=== PATIENT | male | born 1975 | race Caucasian/White ===

== ENCOUNTER 2021-01-22 17:20 | Outpatient (CLI) | payer BC, SELFPAY | END 2021-01-22 17:21 | disposition home or self-care (01) | LOC: ANHCOVIDVC 17:20 | PROVIDERS: PCP Family Medicine | DX: Z23 Encounter for immunization (principal) | CPT/HCPCS: 0001A; 91300 ==

== ENCOUNTER 2021-02-12 17:18 | Outpatient (CLI) | payer BC, SELFPAY | END 2021-02-12 17:19 | disposition home or self-care (01) | LOC: ANHCOVIDVC 17:18 | PROVIDERS: PCP Family Medicine | DX: Z23 Encounter for immunization (principal) | CPT/HCPCS: 0002A; 91300 ==

== ENCOUNTER 2021-08-20 10:12 | Emergency (ER) | payer BC, SELFPAY ==
[2021-08-20] VITALS (26 sets, daily range): BP systolic 157–183; BP diastolic 94–105; PULSE 49–69; RESP 10–24; TEMP 36.5; O2SAT 98–100
--- NOTE | ~2021-08-20 | XR_ITS ---
XR chest 2V DATE: 08/20/2021 11:00 INDICATION: Shortness of breath, dizziness TECHNIQUE: PA and lateral views COMPARISON: None FINDINGS: Normal heart size. No hilar or mediastinal enlargement. No pulmonary infiltrate or consolid ation, pleural effusion or pulmonary vascular congestion or pneumothorax. Minimal thoracic scoliosis. IMPRESSION: No active cardiopulmonary disease Reviewed, dictated and finalized at location B.
--- NOTE | 2021-08-20 10:33 | ECG_ITS ---
Measurements Intervals Milo Rate: 48 P: 70 IN: 168 QRS: 61 QRSD: 114 T: 45 QT: 437 QTc: 394 Interpretive Statements SINUS BRADYCARDIA CONSIDER INFERIOR INFARCT, AGE INDETERMINATE BASELINE ARTIFACT- I, II, III, AVR, AVL, AVF, V1-V6 ABNORMAL ECG Electronically Signed On 08-20-2021 11:24:04 CDT by Brandon Greene D.O.
[2021-08-20 11:02] LABS: Basophils Percent Auto 0.8 % (0.2-1.2); Eosinophils Absolute Auto 0.1 K/mm3 (0-0.3); Eosinophils Percent Auto 2.8 % (0-4.4); Hemoglobin 13.7 g/dL (14.0-18.0); Immature Granulocyte Absolute 0.01 K/mm3 (0.00-0.031); Immature Granulocyte Percent A 0.3 % (0-0.5); Lymphocytes Absolute Auto 1.22 K/mm3 (0.9-3.2); Lymphocytes Percent Auto 30.9 % (18.3-44.2); Mean Corpuscular HGB Conc 33.4 g/dl (32-36); Mean Corpuscular Hemoglobin 31.5 pg (26-34); Mean Corpuscular Volume 94.3 fl (80-100); Mean Platelet Volume 12.4 fl (7.4-10.4); Monocytes Absolute Auto 0.3 K/mm3 (0.1-0.6); Monocytes Percent Auto 7.3 % (2.6-8.5); Neutrophils Absolute Auto 2.3 K/mm3 (1.3-6.7); Neutrophils Percent Auto 57.9 % (45.5-73.1); Platelet Count Result 160 k/mm3 (150-375); Red Blood Count 4.35 M/mm3 (4.6-6.20); Red Cell Distribution Width 11.3 % (11.5-14.5)
[2021-08-20 11:14] LABS: Anion Gap 5 mmol/L (8-16); Blood Urea Nitrogen 21 mg/dL (9-20); Calcium 9.8 mg/dL (8.4-10.2); Carbon Dioxide 31 mmol/L (22-30); Chloride 102 mmol/L (98-107); Estimated CRCL calculation 97 ml/min; Estimated Glomerular Filt Rate > 60; Glucose 108 mg/dL (65-110); Potassium 4.9 mmol/L (3.4-5.0); Sodium 138 mmol/L (137-145)
[2021-08-20 11:19] LABS: INR 0.9; Partial Thromboplastin Time 25.7 SECONDS (22.3-36.8); Prothrombin Time 12.2 Seconds (11.1-14.7)
[2021-08-20 11:22] LABS: D Dimer 0.33 ug/mL (<0.48)
[2021-08-20 11:26] LABS: Troponin I < 0.012 ng/mL (0.000-0.034)
--- NOTE | 2021-08-20 11:31 | ED.DIZZY ---
HPI - Dizziness General Chief Complaint: Dizziness Stated Complaint: dizzy Time Seen by Provider: 08/20/21 10:30 Source: patient and RN notes reviewed Mode of arrival: ambulatory Limitations: no limitations History of Present Illness HPI Narrative: This is a 46 year old male who presents for evaluation of dizziness. Patient reports he has had 3 episodes in which he gets lightheaded. His most recent episode occurred this morning while he was on a bike ride. He states he had been riding his bike for 40 minutes and he develop sharp frontal headache, lightheadedness and shortness of breath. He states he stopped to rest so his symptoms only lasted 2-3 minutes. He tried to right his bike again and he became lightheaded. He denies having heart racing or chest pain with his symptoms. He has not symptoms currently. He states he has had 2 other episode over the past week. One episode occurred with exertion and one episode occurred at rest. He denies headache , dizziness, chest pain or shortness of breath currently. Related Data Allergies Allergy/AdvReac Type Severity Reaction Status Date / Time No Known Drug Allergies Allergy Unknown Unknown Verified 08/16/21 07:55 Review of Systems Review of Systems: All systems reviewed & are unremarkable except as noted in HPI and below Constitutional: Constitutional: Denies chills and Denies fever(s) Eyes: Eyes: Denies change in vision Cardiovascular: Cardiovascular: Denies chest pain Respiratory: Respiratory: Denies cough, Reports dyspnea and Denies wheezing Gastrointestinal: Gastrointestinal: Denies abdominal pain, Denies diarrhea, Denies nausea and Denies vomiting Neurologic: Reports dizziness, Reports headache(s) and Denies focal weakness PMFSH Past Medical History Medical History Acute bronchitis due to infection Acute bronchitis due to other specified organisms Alopecia BMI 30.0-30.9,adult Body mass index [BMI] 29.0-29.9, adult (10/29/17) Body mass index [BMI] 31.0-31.9, adult (02/05/18) Bradycardia Dietary counseling and surveillance (09/20/18) Dyspnea on exertion Elevated blood pressure reading Hyperhidrosis Hyperlipidemia, unspecified Lightheadedness Other asthma Overweight Routine physical examination Screening for diabetes mellitus Screening for lipid disorders Screening for prostate cancer Screening for thyroid disorder Surgical History Surgical History History of appendectomy Family History Family History Father Hypertension Grandparent Family history of coronary artery disease Diabetes mellitus Mother History of hip replacement Sibling No problems noted. Social History Social History Alcohol intake: current Additional occupation/education comments: [employer] Gender identity (if verbalized by the patient): Male Exam Narrative: GENERAL: Well-appearing, well-nourished, and in no acute distress. HEAD: Normocephalic, atraumatic EYES: PERRLA and EOMI, conjunctiva clear without discharge EARS: TM's clear bilaterally without erythema or dullness NOSE: Nares clear, no rhinorrhea or epistaxis THROAT:Mucous membranes moist, Oropharynx normal without erythema, exudate, peritonsillar swelling or fluctuance NECK: Supple, without lymphadenopathy or mass RESPIRATORY: No respiratory distress, Airway patent, Respirations non-labored, Clear to auscultation without rales, rhonchi or wheeze HEART: Regular rate and rhythm. No murmur heard. Normal peripheral pulses. ABDOMEN: Soft, nontender, nondistended, normal active bowel sounds. No masses. No rebound or guarding, No organomegaly. EXTREMITIES: No edema, normal strength with full range of motion. SKIN: Warm, dry, normal color without rash NEURO: Alert and oriented x3. CN
[2021-08-20] MEDS: SODIUM CHLORIDE 0.9% IV 1,000 ML 999 ML IV CONT (11:54)
[2021-08-20 12:43] LABS: Magnesium 1.9 mg/dL (1.6-2.3)
[2021-08-20] MEDS: hydrALAZINE HCL 20 MG/ML VIAL 10 MG IV PUSH (13:39)
[2021-08-20 14:45] LABS: Troponin I < 0.012 ng/mL (0.000-0.034)
--- NOTE | 2021-08-20 15:22 | PC.NURSE ---
Patient refusing holter monitor. Patient states he would like to shower when he gets home and would be unable to shower with monitor. Patient aware of risks and benefits of wearing monitor. Patient given prescription to picker packer and wear holter monitor tomorrow. Patient given instructions on where to go tomorrow to picker packer monitor. OFELIA Fuentes aware.
== END 2021-08-20 15:24 | disposition home or self-care (01) ==
PROVIDERS: Emergency Provider General Practice; PCP Family Medicine
DX: R42 Dizziness and giddiness (principal); R06.02 Shortness of breath; J45.909 Unspecified asthma, uncomplicated
CPT/HCPCS: 36415; 71046; 80048; 83735; 84484; 85025; 85380; 85610; 85730; 93005; 96361; 96374; 99284; J0360; J7030

== ENCOUNTER 2021-08-21 12:53 | Outpatient (CLI) | payer BC, SELFPAY ==
--- NOTE | 2021-08-28 11:48 | WPDHOLTEREM ---
Holter/Event Monitor Holter/Event Monitor Date of procedure: 08/21/21 Holter/Event Procedure: 48 Hr Holter Monitor Indications: Exertional dizziness Conclusion: 1. 48 hour holter monitor on 08/21/21. 2. Underlying rhythm is sinus rhythm. HR range 43-167 bpm; average HR 65 bpm. HR at 167 bpm was at 11:42. 3. There are 12 premature supraventricular complexes and 1 supraventricular couplet. No supraventricular tachycardia. 4. There is 1 premature ventricular complex. No ventricular tachycardia. 5. No sinoatrial or atrioventricular blocks. No significant pauses greater than 2 seconds. 6. Patient reports symptoms of headache, sob which demonstrate sinus rhythm, HR range 65-90 bpm.
== END 2021-08-21 12:54 | disposition home or self-care (01) ==
PROVIDERS: PCP Family Medicine; Visit Provider General Practice
DX: R06.00 Dyspnea, unspecified (principal)
CPT/HCPCS: 93225; 93226

== ENCOUNTER → 2021-09-14 07:58 | Outpatient (CLI) | payer BC, SELFPAY ==
--- NOTE | ~2021-09-14 | US_ITS ---
EXAMINATION: US carotid duplex BI DATE: 09/14/2021 08:38 INDICATION: Dizziness and giddiness. TECHNIQUE: Grayscale, color Doppler, and pulsed Doppler images of the cervical carotid arteries were obtained. The degree of vessel stenosis is placed in one of the following categories: normal, <50%, 5 0-69%, >=70% but less than near-occlusion, near-occlusion, or total occlusion. Note that percent sten osis relative to normal distal artery lumen diameter is indirectly measured from velocity measurement s as described by Bandar, et al. Radiology 2003; 229:340-346. COMPARISON: None. FINDINGS: RIGHT: The right common carotid artery (CCA) peak systolic velocity (PSV) is 132 cm/s. The right internal ca rotid artery (ICA) PSV is 100 cm/s. The right ICA end-diastolic velocity (EDV) is 32 cm/s. The right ICA/CCA PSV ratio is 0.8. Grayscale and color Doppler images yield an estimate of <50% diameter reduc tion from plaque in the ICA. The external carotid artery (ECA) PSV is 155 cm/s. There is antegrade fl ow in the right vertebral artery. LEFT: The left CCA PSV is 116 cm/s. The left ICA PSV is 92 cm/s. The left ICA EDV is 29 cm/s. The left ICA/ CCA PSV ratio is 0.8. Grayscale and color Doppler images yield an estimate of <50% diameter reduction from plaque in the ICA. The ECA PSV is 132 cm/s. There is antegrade flow in the left vertebral arter y. IMPRESSION: 1. <50% stenosis in the right internal carotid artery. 2. <50% stenosis in the left internal carotid artery. Reviewed, dictated and finalized at location A.
== END ==
PROVIDERS: PCP Family Medicine; Visit Provider Physician Assistant Medical
DX: R42 Dizziness and giddiness (principal); I65.23 Occlusion and stenosis of bilateral carotid arteries
CPT/HCPCS: 93880

== ENCOUNTER 2021-09-27 08:25 | Outpatient (CLI) | payer BC, SELFPAY ==
--- NOTE | 2021-09-27 08:36 | EST_ITS ---
Patient Info Name: Lisandro [place]an Age: 46 years : 1975 Gender: Male Ht: 74 in Wt: 225 lbs BSA: 2.33 m2 Exam Date: 09/27/2021 8:52 AM Exam Location: [facility] Stress Patient Status: Outpatient Admit Date: 09/27/2021 Staff Ordering Physician: Brandon Greene DO Attending Provider: Brandon Greene DO Exercise Technologist: Loretta Boyle RDCS Exercise Physician: Brandon Greene DO Exam Type: CA stress test treadmill Study Info Indications R42 - Dizziness and giddiness Summary 1. 1. Negative Luis exercise stress test for ischemic ST changes by ECG criteria. 2. 2. Good functional capacity, achieving 12 METs of workload. 3. 3. Hypertensive response to exercise. 4. 4. Appropriate HR response to exercise. 5. 5. Appropriate HR recovery at 1 minute post exercise. 6. 6. No imaging with stress testing. 7. 7. Patient informed of the above results. Protocol: Luis Stress ECG Details Stage: REST Duration (min): 6 min : 21 sec Speed (mph): 0.0 Grade (%): 0 HR (bpm): 50 SBP (mmHg): 139 DBP (mmHg): 79 METS: --- Stage: REST Duration (min): 18 min : 53 sec Speed (mph): 0.0 Grade (%): 0 HR (bpm): 58 SBP (mmHg): 139 DBP (mmHg): 79 METS: --- Stage: STAGE 1 Duration (min): 1 min : 0 sec Speed (mph): 1.7 Grade (%): 10 HR (bpm): 92 SBP (mmHg): 139 DBP (mmHg): 79 METS: --- Stage: STAGE 1 Duration (min): 2 min : 0 sec Speed (mph): 1.7 Grade (%): 10 HR (bpm): 96 SBP (mmHg): 139 DBP (mmHg): 79 METS: --- Stage: STAGE 1 Duration (min): 3 min : 0 sec Speed (mph): 1.7 Grade (%): 10 HR (bpm): 90 SBP (mmHg): 176 DBP (mmHg): 67 METS: --- Stage: STAGE 2 Duration (min): 1 min : 0 sec Speed (mph): 2.5 Grade (%): 12 HR (bpm): 112 SBP (mmHg): 176 DBP (mmHg): 67 METS: --- Stage: STAGE 2 Duration (min): 2 min : 0 sec Speed (mph): 2.5 Grade (%): 12 HR (bpm): 112 SBP (mmHg): 192 DBP (mmHg): 65 METS: --- Stage: STAGE 2 Duration (min): 3 min : 0 sec Speed (mph): 2.5 Grade (%): 12 HR (bpm): 114 SBP (mmHg): 192 DBP (mmHg): 65 METS: --- Stage: STAGE 3 Duration (min): 1 min : 0 sec Speed (mph): 3.4 Grade (%): 14 HR (bpm): 130 SBP (mmHg): 180 DBP (mmHg): 64 METS: --- Stage: STAGE 3 Duration (min): 2 min : 0 sec Speed (mph): 3.4 Grade (%): 14 HR (bpm): 135 SBP (mmHg): 180 DBP (mmHg): 64 METS: --- Stage: STAGE 3 Duration (min): 3 min : 0 sec Speed (mph): 3.4 Grade (%): 14 HR (bpm): 131 SBP (mmHg): 216 DBP (mmHg): 90 METS: --- Stage: STAGE 4 Duration (min): 1 min : 0 sec Speed (mph): 4.2 Grade (%): 16 HR (bpm): 151 SBP (mmHg): 216 DBP (mmHg): 90 METS: --- Stage: STAGE 4 Duration (min): 2 min : 0 sec Speed (mph): 4.2 Grade (%):
== END 2021-09-27 08:26 | disposition home or self-care (01) ==
PROVIDERS: PCP Family Medicine; Visit Provider Internal Medicine Cardiovascular Disease
DX: R42 Dizziness and giddiness (principal)
CPT/HCPCS: 93017

== ENCOUNTER → 2022-01-10 08:26 | Outpatient (CLI) | payer BC, SELFPAY ==
--- NOTE | ~2022-01-10 | XR_ITS ---
XR knee RT 3V DATE: 01/10/2022 08:58 INDICATION: Right knee pain TECHNIQUE: AP, lateral, sunrise views COMPARISON: None FINDINGS: There is mild loss of height at the medial joint space. No fracture or dislocation or joint effusion, radiopaque intra-articular loose body or, calcinosis. No periosteal reaction or bone destr uction. IMPRESSION: Mild loss of height of medial compartment joint space, likely due to mild osteoarthritis Reviewed, dictated and finalized at location A. L PRESS CLERK IMPRESSION: Mild loss of height of medial compartment joint space, likely due t o mild osteoarthritis
== END ==
PROVIDERS: PCP Family Medicine; Visit Provider Family Medicine
DX: M25.561 Pain in right knee (principal); G89.29 Other chronic pain; R93.6 Abnormal findings on diagnostic imaging of limbs
CPT/HCPCS: 73562

== ENCOUNTER 2023-05-08 07:08 | Outpatient (CLI) | payer BC, SELFPAY ==
[2023-05-08 07:34] LABS: Anion Gap 5 mmol/L (8-16); Blood Urea Nitrogen 22 mg/dL (9-20); Calcium 9.2 mg/dL (8.4-10.2); Carbon Dioxide 28 mmol/L (22-30); Chloride 106 mmol/L (98-107); Cholesterol 257 mg/dL (0-200); Estimated Glomerular Filt Rate > 60; Glucose 93 mg/dL (65-110); HDL Direct 35 mg/dL; Potassium 4.4 mmol/L (3.4-5.0); Sodium 139 mmol/L (137-145); Triglycerides 287 mg/dL (<150)
[2023-05-08 07:44] LABS: LDL Cholesterol Direct 145 mg/dL
[2023-05-08 08:04] LABS: Prostate Specific Antigen 0.8 ng/mL (< OR = 4.0)
== END 2023-05-08 07:09 | disposition home or self-care (01) ==
PROVIDERS: PCP Family Medicine; Visit Provider Nurse Practitioner Family
DX: E78.5 Hyperlipidemia, unspecified (principal); I10 Essential (primary) hypertension; Z13.29 Encounter for screening for other suspected endocrine disorder; Z12.5 Encounter for screening for malignant neoplasm of prostate
CPT/HCPCS: 36415; 80048; 80061; 84153; 84443; G0103

== ENCOUNTER → 2023-12-11 10:01 | Outpatient (CLI) | payer BC, SELFPAY ==
--- NOTE | ~2023-12-11 | XR_ITS ---
Left Knee Technique: AP, lateral, and oblique views were obtained. Clinical History: Pain Findings: No fracture or dislocation is seen. Osseous alignment is anatomic. Joint spaces are preserv ed without degenerative or erosive change. Soft tissues are unremarkable. No joint effusion is seen. Impression: Unremarkable left knee radiographs. Reviewed, dictated and finalized at [facility]. MARKETING INTERN Impression: Unremarkable left knee radiographs.
== END ==
PROVIDERS: PCP Physician Assistant Medical; Visit Provider Physician Assistant Medical
DX: M25.562 Pain in left knee (principal)
CPT/HCPCS: 73564

== ENCOUNTER → 2024-01-09 08:18 | Outpatient (CLI) | payer BC, SELFPAY ==
--- NOTE | ~2024-01-09 | MR_ITS ---
EXAMINATION: MR knee LT wo con DATE: 01/09/2024 09:01 INDICATION: Left knee injury and pain. TECHNIQUE: Magnetic resonance imaging (MRI) of the left knee was performed without intravenous contra st. Sequences included axial PD-weighted FS FSE, coronal PD-weighted FSE and PD-weighted FS FSE, sagi ttal PD-weighted FSE, and sagittal T2-weighted FS FSE. COMPARISON: Left knee radiographs 01/01/2024 FINDINGS: Medial compartment: There is a bucket-handle tear of medial meniscus displaced into the intercondylar notch. There is sha llow partial-thickness cartilage loss of femoral condyle and tibial condyle. There is mild subchondra l edema-like marrow signal intensity of tibial condyle posteriorly. Lateral compartment: Lateral meniscus is normal. Lateral compartment cartilage is normal. Patellofemoral compartment: There is cartilage surface irregularity of patellar lateral and medial facets. There is cartilage kyaw face irregularity of trochlea. Ligaments and tendons: The anterior and posterior cruciate ligaments are normal. Medial collateral ligament is normal. There are changes of prior sprain of fibular collateral ligament characterized by thickening and increased signal intensity proximally. There is mild patellar tendinopathy. Fluid: There is a moderate-sized knee joint effusion. There is a small Craig's cyst. There is mild prepatell ar and superficial infrapatellar bursitis. IMPRESSION: 1. Displaced bucket-handle tear of medial meniscus. 2. Mild tricompartmental chondrosis. 3. Moderate-sized knee joint effusion. 4. Small Craig's cyst. Reviewed, dictated and finalized at location A. OGICAL DRAFTER
== END ==
PROVIDERS: PCP Nurse Practitioner Family; Visit Provider Nurse Practitioner Family
DX: S89.82XA Other specified injuries of left lower leg, initial encounter (principal); M25.562 Pain in left knee; S83.212A Bucket-handle tear of medial meniscus, current injury, left knee, initial encounter; M22.2X2 Patellofemoral disorders, left knee; M25.462 Effusion, left knee; M71.22 Synovial cyst of popliteal space [Baker], left knee
CPT/HCPCS: 73721

== ENCOUNTER 2024-02-19 01:07 | Day surgery (SDC) | payer BC, SELFPAY ==
[2024-02-17 09:11] VITALS: BMI 29.6
--- NOTE | 2024-02-17 09:16 | PC.NURSE ---
Report to the Outpatient Waiting Room, entrance under the green pavilion located off [facility], at time 0830 on date 02/19/24. Planned Procedure Time: 1030. Time changes happen often and if your time is changed the preop area will call you the afternoon before. - You and your visitor will be asked to self-screen and do not enter if you have any COVID symptoms. - A mask is optional within the hospital at this time. Patients may have clear liquids (water, carbonated beverages, clear teas, apple juice) until 3 hours prior to surgery with a maximum of 20 ounces. - No food from midnight until time of surgery Take the following medications with a SIP of water the morning of surgery: NONE DO NOT STOP ANY OF YOUR OTHER PRESCRIPTION MEDICATIONS PRIOR TO SURGERY ?EXCEPT THE FOLLOWING Medications to discontinue per physician: N/A Date to take last dose: N/A Please no make-up, nail mongolian, hairspray, perfume, deodorant, or body powder the day of surgery. No jewelry (including any body piercings) or valuables the day of surgery, leave them at home. Please take a shower or bath the night before, or the morning of, surgery with an antibacterial soap. Wear comfortable, loose fitting clothing. - Jewelry must be removed prior to entering the operating room. Rings and piercings that are not removed may be cut off. - The hospital will not accept responsibility for valuables. - Please leave all valuables, including medications, at home the day of surgery. If you are going home after surgery, a licensed local [place] truck driver must drive you home. - NO public transportation without another adult if you receive anesthesia. - We recommend that an adult stay with you for 24 hours following discharge. - We also recommend that you do not drive, make important decision, drink alcoholic beverages, or take any drugs that were not prescribed by your health care provider for at least 24 hours after your discharge time. Follow any additional instructions given to you from your surgeon. If you or anyone in your household have experienced Covid symptoms in the past week, please notify your surgeon or the nurse liaison at the phone number below for possible testing. Telephone instructions given to KENNY MOON and asked if any additional questions and then verbalized understanding. Patient advised to call surgeon office or pre surgery nurse liaison [phone] if any additional questions.
[2024-02-19] VITALS (14 sets, daily range): BP systolic 133–193; BP diastolic 81–135; PULSE 59–82; RESP 10–18; TEMP 36.4–36.6; O2SAT 97–100; BMI 29.9
--- NOTE | 2024-02-19 11:11 | ECG_ITS ---
SEE SCANNED COPY FOR CONFIRMED REPORT MTDD
[2024-02-19] MEDS: LACTATED RINGERS 1,000 ML 30 ML IV CONT ×2 (11:25→13:44)
[2024-02-19] MEDS: ACETAMINOPHEN 500 MG TABLET 1000 MG PO (11:32)
[2024-02-19] MEDS: CELECOXIB 200 MG CAPSULE PO (11:32)
--- NOTE | 2024-02-19 12:04 | WPDANESEPPF ---
Anes - Initial Pre Proc Eval Procedure: Operation Date: 02/19/24 13:30 Proposed Procedures p Left Knee Arthroscopy with Meniscus Repair versus Meniscectomy - Jace Cruz MD Date/Time: 02/19/24 12:04 Surgeon: Jace Cruz MD Pre Op Diagnosis: Lt Knee Medial Meniscus Tear Patient Data Age: 49 Gender: M Height: 1.88 m Weight: 106 kg Last Vital Signs Temp 97.8 F 02/19/24 11:00 Pulse 59 L 02/19/24 11:00 Resp 14 02/19/24 11:00 BP 143/90 H 02/19/24 11:00 Pulse Ox 98 02/19/24 11:00 O2 Del Method Room Air 02/19/24 11:00 Allergies Allergy/AdvReac Type Severity Reaction Status Date / Time No Known Drug Allergies Allergy Unknown Unknown Verified 02/19/24 11:18 Home Medications Medication Instructions Recorded Confirmed Type montelukast 10 mg tablet See Rx Instructions .Route 09/04/23 02/17/24 Rx .COMPLEX #90 tabs rosuvastatin 20 mg tablet 20 mg PO DAILY #90 tabs 09/04/23 02/17/24 Rx tizanidine 4 mg tablet 4 mg PO Q8H PRN muscle spasticity 01/05/24 02/17/24 Rx #30 tabs amlodipine 5 mg tablet 5 mg PO DAILY #30 tabs 01/17/24 02/17/24 Rx chlorhexidine gluconate 4 % 1 applic topical DAILY #237 mL 02/12/24 02/17/24 Rx topical liquid (Hibiclens) cetirizine 10 mg tablet (Zyrtec) 10 mg PO DAILY 02/17/24 02/17/24 History aspirin 81 mg capsule 81 mg PO DAILY 02/19/24 02/19/24 History hydrocodone 5 mg-acetaminophen 325 1 tablet PO Q12H PRN pain #20 tabs 02/19/24 Rx mg tablet Patient hx anesthesia problems: none Family hx anesthesia problems: none Results Review: All pre-operative results and documents have been reviewed as part of the pre-operative evaluation. [facility] Past Medical History Medical History Acute bronchitis due to infection Acute bronchitis due to other specified organisms Alopecia BMI 28.0-28.9,adult BMI 30.0-30.9,adult Body mass index [BMI] 29.0-29.9, adult (10/29/17) Body mass index [BMI] 31.0-31.9, adult (02/05/18) Bradycardia Dietary counseling and surveillance (09/20/18) Dyspnea on exertion Elevated blood pressure reading Hyperhidrosis Hyperlipidemia, unspecified Lightheadedness Medial meniscus tear Other asthma Overweight Routine physical examination Screening for diabetes mellitus Screening for lipid disorders Screening for prostate cancer Screening for thyroid disorder Surgical History Surgical History History of appendectomy Family History Family History Father Hypertension Grandparent Family history of coronary artery disease Diabetes mellitus Mother History of hip replacement Sibling No problems noted. 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 Pt had stress test 2020, n
--- NOTE | 2024-02-19 12:10 | WPDHPUPDATE1 ---
History and Physical Update Update Date/Time: 02/19/24 12:10 History and Physical has been reviewed, including an updated exam of the patient. There are NO changes in the patient's condition. Risks, benefits, and alternatives have been discussed and questions answered. Patient agrees to proceed with procedure.
[2024-02-19] MEDS: ceFAZolin 2 GM/D5W 50 ML 2 GM/50 ML BAG IVPB (12:14)
[2024-02-19] MEDS: BUPivacaine HCL 0.5% 10 ML AMP 30 ML INFILTRATE (12:38)
--- NOTE | 2024-02-19 13:53 | W.PM.PROC2 ---
Procedure Note - Detailed Date of Procedure 02/19/24 Pre-op Diagnosis Lt Knee Medial Meniscus Tear Post-op Diagnosis Same Procedure Performed LEFT KNEE SCOPE Surgeon Jace Cruz MD Anesthesia General Description of Procedure PATIENT WAS TAKEN TO THE OR. LEFT LEG WAS PREPPED AND DRAPED STERILE. TROCARS WERE PLACED IN THE USUAL FASHION. CAMERA WAS INTRODUCED. THERE WAS CHONDROMALACIA TO THE PATELLA FEMORAL JOINT. THERE WAS A LOT OF SYNOVITIS IN ALL COMPARTMENTS. THE MEDIAL COMPARTMENT SHOWED CHONDROMALACIA TO THE MEDIAL FEMORAL CONDYLE. A SHAVER WAS USED TO PREFORM A CHONDROPLASTY. THERE WAS A COMPLEX MEDIAL MENISCUS TEAR WITH A BUCKET HANDLE COMPONENT. THERE WERE 2 SEPARATE EDGES TO THE BUCKET HANDLE COMPONENT. REPAIR WAS NOT A VIABLE OPTION DO TO ITS COMPLEX CONFIGURATION. THE TEAR WAS RESECTED WITH A BITER AND A SHAVER DOWN TO A SMOOTH BASE. THE ACL WAS INTACT. THE LATERAL MENISCUS WAS NOT TORN. THE LAT COMPARTMENT HAD MINIMAL CHONDROMALACIA. CHONDROPLASTY WAS PREFORMED. A SYNOVECTOMY WAS PREFORMED WELL. THE PATELLO FEMORAL JOINT UNDERWENT MINIMAL CHONDROPLASTY. SYNOVECTOMY WAS PREFORMED IN THE SUPERIOR MEDIAL COMPARTMENT. THE WOUNDS WERE APPROXIMATED WITH 4.0 NYLON. STERILE DRESSING WAS APPLIED. PATIENT WAS EXTUBATED. Estimated Blood Loss 5 Complications No immediate complications Condition Stable Disposition PACU
[2024-02-19] MEDS: fentaNYL CITRATE INJ (*CRX) 100 MCG/2 ML VIAL 25 MCG IV PUSH ×3 (14:15→14:41)
[2024-02-19] MEDS: hydrALAZINE HCL 20 MG/ML VIAL 5 MG IV PUSH (14:40)
[2024-02-19] MEDS: hydrALAZINE HCL 20 MG/ML VIAL 10 MG IV PUSH (15:00)
[2024-02-19] MEDS: LABETALOL HCL INJ 100 MG/20 ML VIAL 10 MG IV PUSH (15:24)
[2024-02-19] MEDS: oxyCODONE (*CRX) 5 MG/5 ML ORAL SOLN IR PO (16:10)
[2024-02-19] MEDS: ONDANSETRON INJ 4 MG/2 ML VIAL IV PUSH (16:26)
== END 2024-02-19 17:31 | disposition home or self-care (01) ==
PROVIDERS: PCP Family Medicine; Visit Provider Orthopaedic Surgery
PROC: (CPT 29870; principal; 2024-02-19 13:30)
DX: S83.212A Bucket-handle tear of medial meniscus, current injury, left knee, initial encounter (principal); M22.42 Chondromalacia patellae, left knee; M65.862 Other synovitis and tenosynovitis, left lower leg; X50.0XXA Overexertion from strenuous movement or load, initial encounter; E78.5 Hyperlipidemia, unspecified; Z87.891 Personal history of nicotine dependence
CPT/HCPCS: 29881; 29876; 93005; A9270; J0360; J0690; J1100; J1170; J1596; J2250; J2405; J2704; J3010; J7120

== ENCOUNTER 2024-08-06 07:25 | Outpatient (CLI) | payer BC, SELFPAY ==
[2024-08-06 08:34] LABS: Alanine Aminotransferase 42 U/L (6-50); Albumin Level 4.5 g/dL (3.5-5.1); Alkaline Phosphatase 70 U/L (38-126); Anion Gap 13 mmol/L (4-12); Aspartate Amino Transferase 38 U/L (17-59); Bilirubin,Total 0.3 mg/dL (0.2-1.3); Blood Urea Nitrogen 22 mg/dL (9-20); Carbon Dioxide 25 mmol/L (22-30); Chloride 104 mmol/L (98-107); Cholesterol 120 mg/dL (0-200); Creatine Kinase 268 U/L (55-170); Estimated Glomerular Filt Rate > 60; Glucose 105 mg/dL (65-110); HDL Direct 31 mg/dL; Potassium 4.1 mmol/L (3.4-5.0); Sodium 142 mmol/L (137-145); Triglycerides 109 mg/dL (<150)
[2024-08-06 08:46] LABS: LDL Cholesterol Direct 61 mg/dL
[2024-08-06 09:04] LABS: Prostate Specific Antigen 0.7 ng/mL (< OR = 4.0)
[2024-08-06 09:07] LABS: Vitamin D 25 Hydroxy 38.3 ng/mL
[2024-08-12 13:24] LABS: Testosterone Free 55.9 pg/mL (35.0-155.0); Testosterone Total 319 ng/dL (250-1100)
== END 2024-08-06 07:26 | disposition home or self-care (01) ==
PROVIDERS: PCP Family Medicine; Visit Provider Physician Assistant Medical
DX: E55.9 Vitamin D deficiency, unspecified (principal); E78.5 Hyperlipidemia, unspecified; H91.93 Unspecified hearing loss, bilateral; I10 Essential (primary) hypertension; Z12.5 Encounter for screening for malignant neoplasm of prostate; Z13.29 Encounter for screening for other suspected endocrine disorder
CPT/HCPCS: 36415; 80053; 80061; 82306; 82550; 84153; 84402; 84403; 84443; G0103

== ENCOUNTER 2024-09-17 06:59 | Outpatient (CLI) | payer BC, SELFPAY ==
[2024-09-17 07:45] LABS: Anion Gap 8 mmol/L (4-12); Blood Urea Nitrogen 24 mg/dL (9-20); Calcium 9.5 mg/dL (8.4-10.2); Carbon Dioxide 28 mmol/L (22-30); Chloride 104 mmol/L (98-107); Creatine Kinase 472 U/L (55-170); Estimated Glomerular Filt Rate > 60; Glucose 97 mg/dL (65-110); Potassium 4.2 mmol/L (3.4-5.0); Sodium 140 mmol/L (137-145)
== END 2024-09-17 07:00 | disposition home or self-care (01) ==
LOC: ANHLAB 07:01
PROVIDERS: PCP Family Medicine; Visit Provider Physician Assistant Medical
DX: R74.8 Abnormal levels of other serum enzymes (principal); N28.9 Disorder of kidney and ureter, unspecified; E78.5 Hyperlipidemia, unspecified
CPT/HCPCS: 36415; 80048; 82550

== ENCOUNTER 2024-10-22 07:13 | Outpatient (CLI) | payer BC, SELFPAY ==
[2024-10-22 07:47] LABS: Anion Gap 3 mmol/L (4-12); Blood Urea Nitrogen 18 mg/dL (9-20); Calcium 9.1 mg/dL (8.4-10.2); Carbon Dioxide 28 mmol/L (22-30); Chloride 107 mmol/L (98-107); Creatine Kinase 201 U/L (55-170); Estimated Glomerular Filt Rate > 60; Glucose 104 mg/dL (65-110); Potassium 4.1 mmol/L (3.4-5.0); Sodium 138 mmol/L (137-145)
--- OUTSIDE RECORDS SUMMARY | 2024-10-25 20:41 | XMS_ITS | Continuity of Care Document ---
Author Organization [facility] Address [address] [place] [address] Phone Care Team Providers Care Global Coordinator Name Role Phone Quinton PT,MPT,ATC, Johnnie Unavailable Unavai lable Procedures Procedure Date Therapeutic Activities Therapeutic Exercise Neuromuscular Re-Ed Therapeutic Activities Neuromuscular Re-Ed Manual Therapy Therapeutic [...] Diagnoses Date Provider Providers Copied on Encounter [facility], [address], [place], [place], [id number], [place] tel:[phone] George No Information 0 Quinton Betancourt , [place], [place]. Referring Provider: Papi Muñoz, [address] [facility], [place], [address]. tel:[phone] [place], [place] [address], [place], [place], [id number], [place] tel:[phone] George No Information 0-202 0 Alcantara Johnnie. , [place], [place]. Referring Provider: Papi Muñoz, [address] [facility], [place], [address]. tel:[phone] [place], [place] [address], [place], [place], [id number], [place] tel:[phone] George No Information 2-202 0 Alcantara Johnnie. , [place], [place]. Referring Provider: Papi Muñoz, [address] [place], [address]. tel:[phone] [place] [address], [place], [place], [id number], [place] tel:[phone] George No Information Dec-2 6-201 9 Alcantara Johnnie. , [place], [place]. Referring Provider: Papi Muñoz, [address] [place], [address]. tel:[phone] [place] [address], [place], [place], [id number], [place] tel:[phone] George No Information Dec-2 3-201 9 Alcantara Johnnie. , [place], [place]. Referring Provider: Papi Muñoz, [address] [place], [address]. tel:[phone] [place], [place] [address] [address], [place], [place], [id number], [place] tel:[phone] George No Information Dec-2 0-201 9 Alcantara Johnnie. , [place], [place]. Referring Provider: Papi Muñoz, [address] [place], [address]. tel:[phone] [place], [place] [address], [place], [place], [id number], tel:[phone] George No Information 9 Quinton [place], [place], [place]. Referring Provider: Papi Muñoz, 20B [employer] [facility], [place], [address]. tel:[phone] [employer] [place], [address], [place], [place], [id number], tel:[phone] George No Information 9 Quinton [place], [place], [place]. Referring Provider: Papi Muñoz, 20[address] [employer] [facility], [place], [address]. tel:[phone] Family History Family Member Type Diagnosis Age At Onset No Information Payers Payer name Insurance type Covered democrat ID Rocio younger(s) [facility] [id number] Social History Type Description Quantity Date Captured [...]
--- OUTSIDE RECORDS SUMMARY | 2024-10-25 20:41 | XMS_ITS | Patient Health Record ---
Author Organization [facility] Address [address] [place] [address] Care Team Providers Care Surgical Training Specialist Name Role Phone Wanda SIM, Papi Primary Care Provider Unavaila Zoya Dewey Unavailable [phone] ZZ-Migration, Provider Unavailable Unavailab le Reason For Referral No Information Medications Medication SIG (Take, Route, Frequency, Duration) Notes Start Date End Date Status Finasteride 1 MG TAKE 1 TABLET BY WILLY TH ONCE DAILY for 30 Active Montelukast Sodium 10 MG 1 tab(s) orally once a day for 30 day(s) Active ZyrTEC Allergy 10 MG 1 tablet PO once a day Active FINASTERIDE 1 mg TAKE 1 TABLET BY WILLY TH ONCE DAILY for 30 Active ZYRTEC 10mg 1 tablet PO once a day Active MONTELUKAST 10 mg 1 tab(s) orally once a day for 30 day(s) Active Social History Tobacco Use: Social History Observation Description Date Details (start date - stop date) Former Smoker NA - NA Smoking Smart Form: Question Answer Notes Are you a: former smoker How long it has been since you last smoked? > 10 years Encounters Encounter Location Date Provider Diagnosis [facility] [address] [place] [address] 04/23/2024 Provider ZZ-Migration Plan Of Treatment No Information Insurance Providers Payer Name Payer Address Payer Phone Subscriber Number Group Number Insured Name Patient Relationship to Insured Coverage Start Date Coverage End Date [facility] [id number] [place] [address] [phone] [id number] Lisandro Vaughan Self - patient is the insured Medical (General) History Medical History History ICD Code Allergic rhinitis due to pollen J30.1 Surgical History Surgery Date(Month/Year) Appendicitis 04/09/2014 Hospitalization History Reason Date(Month/Year) Appendicitis 04/09/2014
--- OUTSIDE RECORDS SUMMARY | 2024-10-25 20:41 | XMS_ITS | Encounter Summary ---
Author Organization [facility] Address [address] [place] [address] Care Team Providers Care Manufacturers Agent Name Role Phone Unavailable Primary Care Provider Unavailabl e Reason for Visit * Reason Onset Date Comments Asthma 12/14/2019 Initial Outreach Encounter Details Date Type Department Care Team (Late st Contact Info) Description 12/14/2019 Patient Outreach [facility] Video Library Assistant Management [address], [address] [place] [address] Waleska Helton RN Asthma (Initial Outreach) Social History Tobacco Use Types Packs/Day Years Used Date Smoking Tobacco: Never Assessed Sex and Gender Information Value Date Recorded Sex Assigned at Not on file Gender Identity Not on file Sexual Orientation Not on file documented as of this encounter Progress Notes * Waleska Helton RN - 12/15/2019 10:40 AM CST Spoke with patient and introduced Asthma Disease Management Program Patient declined enrollment. Reported he was tested for Asthma within the past few years, and the tests came back negative. He does not use any inhalers. Confirmed he was established with PCP - Dr. Papi Muñoz He refused influenza vaccination He denied other questions/concerns at this time Reminded about Nurse carbon paper interleafer services and how to contact Waleska Helton RN BSN CCP CDE Disease Security Installation Sales Technician [address] [address] Office: [phone] [email or web address] BENDING MACHINE OPERATOR documented in this encounter Plan of Treatment Not on file documented as of this encounter Visit Diagnoses Not on filedocumented in this encounter
--- OUTSIDE RECORDS SUMMARY | 2024-10-25 20:41 | XMS_ITS | Clinical Summary ---
Author Organization [facility] Address [address] [facility] Attn: [place] [address] Care Team Providers Care Analysis Director Name Role Phone Papi Muñoz MD Primary Care Provider [phone] Social History Tobacco Use Types Packs/Day Years Used Date Smoking Tobacco: Never Assessed Sex and Gender Information Value Date Recorded Sex Assigned at Not on file Gender Identity Not on file Sexual Orientation Not on file Plan of Treatment Health Maintenance Due Date Last Done Comments DTAP/TDAP/TD VACCINES (1 - Tdap) 02/17/1996 HEPATITIS B VACCINES (1 of 3 - 19+ 3-dose series) 02/17/1996 COLORECTAL SCREENING 2022 Colorectal Cancer Screening 2022 FIT-DNA Q 3 years 2022 FIT/FOBT Q 1 year 2022 Flex Sig/CT Colonography Q 5 years 2022 INFLUENZA VACCINE (#1) 2024 PNEUMOCOCCAL VACCINE 0-64 YEARS Aged Out No longer eligible based on patient's age to complete this topic Care Teams Analysis Director Relationship Specialty Start Date End Date Papi Muñoz MD [address] [place] [address] PCP - General Family Practice 02/05/21
--- OUTSIDE RECORDS SUMMARY | 2024-10-25 20:41 | XMS_ITS | Encounter Summary ---
Author Organization [facility] Address [address] [place] [address] Care Team Providers Care Warehouse Lead Name Role Phone Unavailable Primary Care Provider Unavailabl e Reason for Visit * Reason Onset Date Comments Asthma 02/09/2017 Encounter Details Date Type Department Care Team (Late st Contact Info) Description 02/09/2017 Patient Outreach [facility] Outpatient Care Management - [address] [place] [address] Isa Gupta Asthma Social History Tobacco Use Types Packs/Day Years Used Date Smoking Tobacco: Never Assessed Sex and Gender Information Value Date Recorded Sex Assigned at Not on file Gender Identity Not on file Sexual Orientation Not on file documented as of this encounter Miscellaneous Notes * Telephone Encounter - Isa Gupta - 02/09/2017 4:29 PM CDT Welcome Packet (Welcome Letter, Disease Management Brochure, Ask Me 3) mailed to member on behalf of Waleska Helton RN. documented in this encounter Plan of Treatment Not on file documented as of this encounter Visit Diagnoses Not on filedocumented in this encounter
--- OUTSIDE RECORDS SUMMARY | 2024-10-25 20:41 | XMS_ITS ---
Author Organization [facility] Address [address] [place] [address] Care Team Providers Care City Planner Name Role Phone Wanda SIM, Papi Primary Care Provider Unavaila Zoya Dewey Unavailable [phone] ZZ-Migration, Provider Unavailable Unavailab le REASON FOR VISIT Multum To Medispan Conversion Encounter Medications Medication SIG (Take, Route, Frequency, Duration) Notes Start Date End Date Status Finasteride 1 MG TAKE 1 TABLET BY WILLY TH ONCE DAILY for 30 Active Montelukast Sodium 10 MG 1 tab(s) orally once a day for 30 day(s) Active ZyrTEC Allergy 10 MG 1 tablet PO once a day Active Encounters Encounter Location Date Provider Diagnosis [address] [place] [address] 04/23/2024 Provider ZZ-Migration Plan Of Treatment No Information Progress Notes * Lisandro VAUGHANDOB:1975 (49 yo M)Acc No.[id number]:04/23/2024 Patient:?Lisandro VAUGHAN Provider:?Provider Migration :1975???Age:49 Y???Sex:Male Laith e:04/23/2024 Address:[address], [place] Pcp:Papi Muñoz MD Subjective: * Chief Complaints: * ???1. Multum To Medispan Con version Encounter. * Medical History:? * Medications:?Taking [place]el[place] ast Sodium 10 MG Tablet 1 tab(s) orally once a day , Taking ZyrTEC Allergy 10 MG Tablet 1 tablet PO once a day , Taking Finasteride 1 MG Tablet TAKE 1 TABLET BY MOUTH ONCE DAILY Objective: * Vitals:? Assessment: Plan: * Treatment: * Billing Information: * Visit Code:? * Procedure Codes:? * Electronic signature of Anahi MORRISSEY-Migration on 10/25/2024 at 08:41 PM MANAGER HUMAN RESOURCES Sign off status: Pending * Provider:?Provider Migration Date:?04/23 Generated for Hansel vicente/Ryan/Jeny on:?10/25/2024 08:41 PM MANAGER HUMAN RESOURCES
--- OUTSIDE RECORDS SUMMARY | 2024-10-25 20:41 | XMS_ITS | Encounter Summary ---
Author Organization [facility] Address [address] [place] [address] Care Team Providers Care Affiliate Marketing Specialist Name Role Phone Unavailable Primary Care Provider Unavailabl e Reason for Visit * Reason Onset Date Comments Asthma 12/06/2019 Claims identifie d member for Disease Management Program. Welcome Packet mailed to member. Encounter Details Date Type Department Care Team (Late st Contact Info) Description 12/06/2019 Patient Outreach [facility] Director Management [facility] [facility] [address] [address] [place] [address] Isa Gupta Asthma ( Claims identified member for Disease Management Program. Welcome Packet mailed to member. ) Social History Tobacco Use Types Packs/Day Years Used Date Smoking Tobacco: Never Assessed Sex and Gender Information Value Date Recorded Sex Assigned at Not on file Gender Identity Not on file Sexual Orientation Not on file documented as of this encounter Progress Notes * Isa Gupta - 12/06/2019 1:07 PM CST Claims identified member for Disease Management Program. Welcome Packet mailed to member. PSY PATHOLOGIST documented in this encounter Plan of Treatment Not on file documented as of this encounter Visit Diagnoses Not on filedocumented in this encounter
--- OUTSIDE RECORDS SUMMARY | 2024-10-25 20:41 | XMS_ITS | Encounter Summary ---
Author Organization [facility] Address [address] [place] [address] Care Team Providers Care Greens Cutter Name Role Phone Unavailable Primary Care Provider Unavailabl e Reason for Visit * Reason Onset Date Comments Case Management 03/10/2017 [employer] Encounter Details Date Type Department Care Team (Late st Contact Info) Description 03/10/2017 Patient Outreach [facility] Outpatient Care Management - [address] [place] [address] Waleska Helton, print binding worker [facility] Social History Tobacco Use Types Packs/Day Years Used Date Smoking Tobacco: Never Assessed Sex and Gender Information Value Date Recorded Sex Assigned at Not on file Gender Identity Not on file Sexual Orientation Not on file documented as of this encounter Miscellaneous Notes * Telephone Encounter - Isa Gupta - 03/11/2017 10:27 AM CDT Unable to Reach Letter mailed to member per request of Waleska Helton RN. * Telephone Encounter - Waleska Helton RN - 03/10/2017 9:40 AM CDT Unable to contact patient to [facility] Management services - contact number unavailablein [facility] Will send UTR letter Waleska Helton RN BSN Disease Fountain Operator [facility] [address] [facility] [place] [address] Office: [phone] [email or web address] documented in this encounter Plan of Treatment Not on file documented as of this encounter Visit Diagnoses Not on filedocumented in this encounter
--- OUTSIDE RECORDS SUMMARY | 2024-10-25 20:41 | XMS_ITS | Encounter Summary ---
Author Organization [facility] Address [address] [place] [address] Care Team Providers Care Insurance Sales Manager Name Role Phone Papi Muñoz MD Primary Care Provider [phone] Reason for Visit * Reason Onset Date Comments Case Management 02/05/2021 [place] Encounter Details Date Type Department Care Team (Late st Contact Info) Description 02/05/2021 Patient Outreach [facility] Outpatient Care Management - [place] [address] [place] [address] Toshia Mc RN Case Management ([facility]) Social History Tobacco Use Types Packs/Day Years Used Date Smoking Tobacco: Never Assessed Sex and Gender Information Value Date Recorded Sex Assigned at Not on file Gender Identity Not on file Sexual Orientation Not on file documented as of this encounter Progress Notes * Toshia Mc RN - 02/05/2021 3:49 PM CDT [facility] chart reviewed. PCP added to Epic. Cindy [facility] [address] [place] [address] [address] [place] [address] documented in this encounter Plan of Treatment Not on file documented as of this encounter Visit Diagnoses Not on filedocumented in this encounter Care Teams Insurance Sales Manager Relationship Specialty Start Date End Date Papi Muñoz MD [address] [place] [address] PCP - General Family Practice 02/05/21 documented as of this encounter
== END 2024-10-22 07:14 | disposition home or self-care (01) ==
LOC: ANHLAB 07:14
PROVIDERS: PCP Family Medicine; Visit Provider Physician Assistant Medical
DX: E78.5 Hyperlipidemia, unspecified (principal); R74.8 Abnormal levels of other serum enzymes; N28.9 Disorder of kidney and ureter, unspecified
CPT/HCPCS: 36415; 80048; 82550

== ENCOUNTER 2025-01-07 12:18 | Emergency (ER) | payer BC, SELFPAY ==
[2025-01-07 12:26] VITALS: BP 137/81; PULSE 64; RESP 18; TEMP 36.4; O2SAT 99
--- NOTE | 2025-01-07 12:53 | ED.UPPEXIN ---
HPI - Extremity Injury (Upper) General Chief Complaint: Extremity Injury, Upper Stated Complaint: right hand injury Source: patient Mode of arrival: ambulatory Limitations: no limitations History of Present Illness HPI narrative: 49-year-old male presented for complaint of right hand pain after injury today. He states he bent the finger backwards while doing jujitsu, and heard a loud pop. Described as ?the ring finger knuckle feels loose. ? Pain is worse with movement, but says pain is mild. Pain mostly when he opened a car door. Denies significant decrease in range of motion. Denies numbness, tingling, weakness or deformity. Pt is left hand dominant. Related Data Allergies Allergy/AdvReac Type Severity Reaction Status Date / Time No Known Drug Allergies Allergy Unknown Unknown Verified 01/07/25 12:28 Tsnrnax-SNW-YtC Reductase AdvReac Intermediate elevated Verified 09/19/24 06:37 Inhibitor CK level Review of Systems Review of Systems: CONSTITUTIONAL: Denies body aches, fever, chills CARDIOVASCULAR: Denies chest pain, palpitations, or edema. RESPIRATORY: Denies cough or dyspnea. SKIN: Denies wounds. MUSCULOSKELETAL: Reports right hand pain NEUROLOGIC: Denies numbness, tingling, or weakness. PSYCH: Denies depression or anxiety. All systems reviewed & are unremarkable except as noted in HPI and below PMFSH Past Medical History Medical History Acute bronchitis due to infection Acute bronchitis due to other specified organisms Alopecia BMI 28.0-28.9,adult BMI 30.0-30.9,adult Body mass index [BMI] 29.0-29.9, adult (10/29/17) Body mass index [BMI] 31.0-31.9, adult (02/05/18) Bradycardia Dietary counseling and surveillance (09/20/18) Dyspnea on exertion Elevated blood pressure reading Hyperhidrosis Hyperlipidemia, unspecified Lightheadedness Medial meniscus tear Other asthma Overweight Routine physical examination Screening for diabetes mellitus Screening for lipid disorders Screening for prostate cancer Screening for thyroid disorder Surgical History Surgical History History of appendectomy Family History Family History Father Hypertension Grandparent Family history of coronary artery disease Diabetes mellitus Mother History of hip replacement Sibling No problems noted. Social History Social History Social History: caffeine use Smoking packs per day: 1 Smoking cigarettes per day: 20.0 Years smoked: 11 Smoking pack-years: 11.00 Smoking status: Former smoker Tobacco type: cigarettes Smoking end date: 11/09/07 Alcohol intake: current Drinks per week: 1 Substance use: never Substance use type: does not use Living arrangements: with family Occupation/Education: occupation Additional occupation/education comments: [employer] Gender identity (if verbalized by the patient): Male Spiritual care concerns: No Comments At time of signature, I have reviewed and agree with nursing past medical, surgical, social and family history unless otherwise noted. Please see nursing chart for further information. There is no relevant family history pertinent to the presenting complaint Exam Narrative: GENERAL: Well-appearing in no acute distress. CHEST: Speaks in full sentences. No respiratory distress. HEART: Regular rate and rhythm. Normal and equal peripheral pulses. EXTREMITIES: Right hand has normal strength and sensation. Slightly decreased range of motion to 4th and 5th digits. Pt reports mild pain with movement. Tender with palpation over the 4th and 5th metacarpals. 4th MCP appears flat. No swelling or ecchymosis, No open wounds, or obvious deformity; alignment normal, pulse palpable and equal bilaterally, skin warm, dry, pink. Capillary refill less than 3 seconds. SKIN: Warm, dry NEURO: Alert and oriented x3. PSYCH: Normal mood and affect Course Course Emergency Course: Patient is aware of diagnosis, understands and agrees to treatment plan. Anticipatory guidance given. Patient agrees to follow-up as directed and is aware of reasons to seek care at the emergency department. Portions of this record may have been created with voice recognition software Level of Care: Express Care Visit Vital Signs Vital signs: Vital Signs Temperature 97.6 F 01/07/25 12:26 Pulse Rate 64 01/07/25 12:26 Respiratory Rate 18 01/07/25 12:26 Blood Pressure 137/81 01/07/25 12:26 Pulse Oximetry 99 01/07/25 12:26 Oxygen Delivery Room Air 01/07/25 12:26 Temperature 97.6 F 01/07/25 12:26 Pulse Rate 64 01/07/25 12:26 Respiratory Rate 18 01/07/25 12:26 Blood Pressure 137/81 01/07/25 12:26 Pulse Oximetry 99 01/07/25 12:26 Oxygen Delivery Room Air 01/07/25 12:26 Reviewed Procedures Orthopedic Splinting/Casting right hand: Splinting/Casting Date: 01/07/25 OCL: ulnar gutter Pre-Procedure Neuro Vascular Exam: normal Post-Procedure Neuro Vascular Exam: normal Other Orthopedic Equipment: other (sling) MDM - Extremity Injury (Upper) MDM Narrative Medical decision making narrative: Discussed physical exam findings and xray. Sling and OCL applied. Advised supportive measures and signs/symptoms to go to the ER. Pt is appropriate for outpt treatment and f/u. Differential Diagnosis Differential diagnosis: Likely sprain and strain of wrist, fracture of wrist, finger sprain and fracture of hand Imaging Data Radiologist's impression: Patient: Lisandro Vaughan : 1975 MR#: [id number] Age: 49 Acct:[id number] Loc: [facility] ADM Date: 01/07/25Attending Dr: Ordering Physician: Geeta Montoya APRN Date of Service: 01/07/25 Procedure(s): XR hand RT min 3V Accession Number(s): [id number] cc: Geeta Montoya APRN; Papi Muñoz MD~ EXAMINATION: XR hand RT min 3V DATE: 01/07/2025 12:54 INDICATION: Right hand injury TECHNIQUE: Posteroanterior, oblique and lateral views of the right hand were obtained. COMPARISON: None. FINDINGS: 4 mm dorsal and 1 mm ulnar displacement of an oblique diaphyseal fracture of the right fourth metacarpal. There is also approximately 2 mm proximal migration and 5 degree palmar angulation. No other fractures identified. Minimal osteoarthritis at the first carpometacarpal and a few distal interphalangeal joints. IMPRESSION: 1. Mildly displaced and angulated oblique diaphyseal fracture of the right fourth metacarpal. Discharge Plan Discharge Clinical Impression: Fracture of metacarpal Qualifiers: Encounter type: initial encounter Metacarpal bone: fourth Fracture type: closed Metacarpal location: shaft Fracture alignment: displaced Laterality: right Qualified Code(s): S62.324A - Displaced fracture of shaft of fourth metacarpal bone, right hand, initial encounter for closed fracture Patient Disposition: Home, Self-Care Condition: Stable Instructions: Hand Fracture (ED), Splint Care (ED) Additional Instructions: Rest. Avoid lifting, pushing, pulling etc. ice and elevate the right hand Motrin 800mg every 8 hours, as needed, for pain (take with food). Tylenol 1000mg every 8 hours. Keep splint clean, dry and in place. Use garbage bag while showering to keep splint dry. Use sling Go to the ER immediately for increased pain, tingling/numbness, swelling, redness, etc. Follow up with hand specialist - please call Thursday for an appointment. Patient Language: Kazakh Prescriptions: No Action montelukast 10 mg tablet See Rx Instructions .ROUTE .COMPLEX Qty: 90 1RF Dose Instruction: Take 1 tablet by mouth once daily Rx Instructions: Take 1 tablet by mouth once daily amlodipine 5 mg tablet 5 mg PO DAILY Qty: 90 1RF Patient Comments: TAKES AT HS Follow-up/Referrals: Jeovany Padilla MD [Physician] - Papi Muñoz MD [Primary Care Provider] - Time of Disposition: 14:37
== END 2025-01-07 14:32 | disposition home or self-care (01) ==
PROVIDERS: Emergency Provider Nurse Practitioner Family; PCP Family Medicine
DX: S62.324A Displaced fracture of shaft of fourth metacarpal bone, right hand, initial encounter for closed fracture (principal); X50.9XXA Other and unspecified overexertion or strenuous movements or postures, initial encounter; Y93.75 Activity, martial arts; E78.5 Hyperlipidemia, unspecified; L65.9 Nonscarring hair loss, unspecified; Z87.891 Personal history of nicotine dependence
CPT/HCPCS: 29125; 73130; 99214; A4565; G0463

== ENCOUNTER 2025-01-11 00:33 | Day surgery (SDC) | payer BC, SELFPAY ==
--- NOTE | 2025-01-09 12:10 | PC.NURSE ---
Report to the Outpatient Waiting Room, entrance under the green pavilion located off [facility], at time _7:30 AM on date 01/11/25 . Planned Procedure Time: 9:30 AM .? Time changes happen often and if your time is changed the preop area will call you the afternoon before. - You and your visitor will be asked to self-screen and do not enter if you have any COVID symptoms. Please call surgeon if you need to reschedule. - A mask is optional within the hospital at this time. NOTHING TO EAT OR DRINK 8 HOURS PRIOR TO SURGERY PER DR HENDERSON Take only the following medications with a SIP of water on the morning of surgery: NONE DO NOT STOP ANY OF YOUR OTHER PRESCRIPTION MEDICATIONS PRIOR TO SURGERY EXCEPT THE FOLLOWING Hold all vitamins and supplements for 3 days per anesthesiologist. Medications to discontinue per physician ASPIRIN PER DR HENDERSON Please no make-up, nail mosotho, hairspray, perfume, deodorant, or body powder the day of surgery.? No jewelry (including any body piercings) or valuables the day of surgery, leave them at home.? Please take a shower or bath the night before, or the morning of, surgery with an antibacterial soap.? Wear comfortable, loose fitting clothing.? Children are encouraged to wear pajamas. - Jewelry must be removed prior to entering the operating room.? Rings and piercings that are not removed may be cut off. - The hospital will not accept responsibility for valuables.? - Please leave all valuables, including medications, at home the day of surgery. If you are going home after surgery, a licensed trailer driver must drive you home.? - NO public transportation without another adult if you receive anesthesia. - We recommend that an adult stay with you for 24 hours following discharge. - We also recommend that you do not drive, make important decision, drink alcoholic beverages, or take any drugs that were not prescribed by your health care provider for at least 24 hours after your discharge time. For Pediatric surgeries, we recommend two adults accompany the child home. Follow any additional instructions given to you from your surgeon. Telephone instructions given to __PATIENT and asked if any additional questions and then verbalized understanding. Patient advised to call surgeon office or pre surgery nurse liaison [phone] if any additional questions.
[2025-01-09 12:19] VITALS: BMI 28.8
[2025-01-11] VITALS (9 sets, daily range): BP systolic 103–169; BP diastolic 58–98; PULSE 44–58; RESP 10–16; TEMP 36.6; O2SAT 94–100; BMI 28.9
--- NOTE | ~2025-01-11 | XR_ITS ---
EXAMINATION: XR surgery orthopedic DATE: 01/11/2025 10:17 INDICATION: Right fourth metacarpal fracture. TECHNIQUE: 2 intraoperative fluoroscopic views of right hand were obtained. I was not present. Fluoro scopy exposure time was 1 minute 26 seconds. COMPARISON: Right hand radiographs 01/07/2025 FINDINGS: There is an oblique fracture of diaphysis of fourth metacarpal. The distal fracture fragmen t demonstrates 1 cortical width ulnar displacement and 2 mm shortening. There is internal fixation wi th a headless screw. IMPRESSION: 1. Oblique fracture of fourth metacarpal with internal fixation. Reviewed, dictated and finalized at location A. RN TO SERVICE INSPECTOR
--- OUTSIDE RECORDS SUMMARY | 2025-01-11 00:36 | XMS_ITS | Continuity of Care Document ---
Author Organization [facility] Address [address] [place] [address] Phone Care Team Providers Care Truss Driver Helper Name Role Phone Quinton PT,MPT,ATC, Johnnie Unavailable [...] Diagnoses Date Provider Providers Copied on Encounter [facility], [address], [place], [place], [id number], [place] tel:[phone] [place] No Information 0 Quinton Betancourt , [place], [place]. Referring Provider: Papi Muñoz, [address] [employer] [facility], [place], [address]. tel:[phone] [place], [place] [address], [place], [place], [id number], [place] tel:[phone] [place] No Information 0-202 0 Alcantara Johnnie. , [place], [place]. Referring Provider: Papi Muñoz, [address] [facility], [place], [address]. tel:[phone] [place], [place] [address], [place], [place], [id number], [place] tel:[phone] Bullock No Information 2-202 0 Alcantara Johnnie. , [place], [place]. Referring Provider: Papi Muñoz, [address] [place], [address]. tel:[phone] [place] [address], [place], [place], [id number], [place] tel:[phone] Bullock No Information Dec-2 6-201 9 Alcantara Johnnie. , [place], [place]. Referring Provider: Papi Muñoz, [address] [place], [address]. tel:[phone] [place], [place] [address] [address], [place], [place], [id number], [place] tel:[phone] Bullock No Information Dec-2 3-201 9 Alcantara Johnnie. , [place], [place]. Referring Provider: Papi Muñoz, [address] [place], [address]. tel:[phone] [place], [place] [address], [place], [place], [id number], [place] tel:[phone] Bullock No Information Dec-2 0-201 9 Alcantara Johnnie. , [place], [place]. Referring Provider: Papi Muñoz, [address] [place], [address]. tel:[phone] [place], [place] [address], [place], [place], [id number], tel:[phone] Bullock No Information 9 Quinton [place], [place]. Referring Provider: Papi Muñoz, [address] [facility], [place], [address]. tel:[phone] [employer] [place], [address], [place], [place], [id number], tel:[phone] Bullock No Information 9 Quinton [place], [place]. Referring Provider: Papi Muñoz, [address] [facility], [place], [address]. tel:[phone] Family History Family Member Type Diagnosis Age At Onset No Information Payers Payer name Insurance type Covered constitution party ID Rocio younger(s) [facility] [id number] Social History Type Description Quantity Date Captured [...]
--- OUTSIDE RECORDS SUMMARY | 2025-01-11 00:36 | XMS_ITS | Clinical Summary ---
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 [address] PCP - General Family Practice 02/05/21
--- NOTE | 2025-01-11 07:47 | P.HPUP_ITS ---
History and Physical Update Update Date/Time: 01/11/25 07:47 Patient seen and examined in pre-operative holding area. No interval change in medical history or symptoms. Patient recalls previous discussion of benefits and alternatives to procedure. Continues to desire to proceed with open reduction internal fixation right fourth metacarpal fracture . Reviewed procedure, post- op expectations and risks including but not limited to bleeding, infection, injury to tendon/nerve/vessel, decreased hand function, stiffness, RSD, no change or worsening of symptoms, hardware complications, malunion, nonunion. I discussed the possible use of assistants and their participation in the case. Patient stated understanding and signed the consent form wishing to proceed.
--- NOTE | 2025-01-11 07:48 | P.OP_ITS ---
Procedure Note - Detailed Date of Procedure 01/11/25 Pre-op Diagnosis Closed Fx 4th Metacarpal Bone Rt Hand Post-op Diagnosis Same Procedure Performed ORIF right 4th mc fx Surgeon Jeovany Padilla MD Wood Preparation Supervisor leeanne kang pa-c Anesthesia General Description of Procedure INFORMED CONSENT: The patient was seen and examined and marked in the pre-op area.? The patient signed the consent form. PROCEDURE IN DETAIL:The patient taken back to OR on the stretcher in supine position. Time out performed with anesthesia, surgeon and staff agreeing on patient's name site and surgery to be performed SCDs were placed on the lower extremities and inflated. A tourniquet was placed on {right} upper extremity and antibiotics given IV After anesthesia administered sedation I injected {10}cc 1%lido with epi and 0.5% marcaine plain for regional block The?{right upper extremity/}?was prepped and draped in sterile fashion the??{right upper extremity} was? exsanguinated with Esmarch bandage and tourniquet inflated to 250mmHg The mini c-arm was draped and brought into the field. THe fracture was visualized on multiple views and unstable reduction was achievable. I made a longitudinal incision over the fourth MCP joint through skin and dermis with 15 blade scalpel. LIttler scissors were used to spread down to extensor tendon. The tendon was splint longitudinally and retracted allowing access to head of fourth metacarpal. I proceeded with place the arthrex k-wire in retrograde fa shion to maintain reduction which was verified on multiple views of fluoroscopy. The metacarpal length was measured off the k-wire and the k-wire was advnaced into the hamate. I proceeded with drilling over the k-wire and then placed a 2.5x50mm arthrex metacarpal intramedullary screw in standard fashion. The screw was placed well in the metacarpal canal and buried/deep to the proximal and distal surfaces. multiple views of fluoro were taken noting maintenance of reduction with slight step off that was deemed to be acceptable at the fracture site. The k-wire was removed. There was no scissoring of the digit with normal cascade and no impingement on range of motion. I irrigated with normal saline and closed dermis wtih 3-0 vicryl and 4-0 nylon for skin. A dressing of xeroform, 4x4, ema, and an ulnar gutter splint was applied for patient safety, security, and comfort and secured with an mk bandage after the tourniquet was let down noting the hand was warm and well perfused. The patient was then awaken from anesthesia and transferred to the recovery room in stable condition.? Complications - none EBL- 0cc Disposition - home in stable conditions Leeanne Kang pa-c was essential for positioning, retraction, closure and dressing placement G Billing Surgery - Charge Forward: Surgery Billing ([phone] for leeanne)
[2025-01-11] MEDS: LACTATED RINGERS 1,000 ML 30 ML IV CONT (08:05)
--- NOTE | 2025-01-11 09:27 | P.PNAN_ITS ---
Anes - Initial Pre Proc Eval Procedure: Operation Date: 01/11/25 09:30 Proposed Procedures p Open Reduction Internal Fixation Right Ring Finger - Jeovany Padilla MD Date/Time: 01/11/25 09:27 Surgeon: Jeovany Padilla MD Pre Op Diagnosis: Closed Fx 4th Metacarpal Bone Rt Hand Patient Data Age: 49 Gender: M Height: 1.88 m Weight: 102.1 kg Last Vital Signs Temp 97.9 F 01/11/25 07:45 Pulse 50 L 01/11/25 07:45 Resp 16 01/11/25 07:45 BP 149/85 H 01/11/25 07:45 Pulse Ox 97 01/11/25 07:45 O2 Del Method Room Air 01/11/25 07:45 Allergies Allergy/AdvReac Type Severity Reaction Status Date / Time hydrocodone AdvReac Severe Nausea Verified 01/11/25 08:03 Ljhfnqi-XSK-ShY Reductase AdvReac Intermediate elevated Verified 01/11/25 08:03 Inhibitor CK level Home Medications ?Medication ?Instructions ?Recorded ?Confirmed ?Type amlodipine 5 mg tablet 5 mg PO DAILY #90 tabs 10/10/24 01/09/25 Rx montelukast 10 mg tablet See Rx Instructions .Route 01/08/25 01/09/25 Rx .COMPLEX #90 tabs aspirin 81 mg capsule 81 mg PO DAILY 01/09/25 01/11/25 History cetirizine 10 mg tablet (All Day 10 mg PO DAILY PRN allergic 01/09/25 01/09/25 History Allergy (cetirizine)) symptoms cephalexin 500 mg capsule 500 mg PO Q8H #21 caps 01/11/25 Rx tramadol 50 mg tablet 50 mg PO Q6H PRN pain #12 tabs 01/11/25 Rx Patient hx anesthesia problems: none Family hx anesthesia problems: none Results Review: All pre-operative results and documents have been reviewed as part of the pre- operative evaluation. [facility] Past Medical History Medical History Medial meniscus tear BMI 28.0-28.9,adult Acute bronchitis due to infection Acute bronchitis due to other specified organisms Alopecia Body mass index [BMI] 29.0-29.9, adult (10/29/17) Body mass index [BMI] 31.0-31.9, adult (02/05/18) Bradycardia Dietary counseling and surveillance (09/20/18) Dyspnea on exertion Elevated blood pressure reading Hyperhidrosis Hyperlipidemia, unspecified Lightheadedness Other asthma Overweight Routine physical examination Screening for diabetes mellitus Screening for lipid disorders Screening for prostate cancer Screening for thyroid disorder BMI 30.0-30.9,adult Surgical History Surgical History History of appendectomy Family History Family History Father Hypertension Grandparent Family history of coronary artery disease Diabetes mellitus Mother History of hip replacement Sibling No problems noted. Social History Social History Social History: caffeine use Smoking packs per day: 1 Smoking cigarettes per day: 20.0 Years smoked: 11 Smoking pack-years: 11.00 Smoking status: Former smoker Tobacco type: cigarettes Smoking end date: 11/09/07 Alcohol intake: current Drinks per week: 2 Alcohol use details: BEER Substance use: never Substance use type: does not use Living arrangements: with family Occupation/Education: occupation Additional occupation/education comments: [employer] Gender identity (if verbalized by the patient): Male Spiritual care concerns: No Anes - Eval Final PreProcedure Day of Procedure 01/11/25 09:27 Patient weight: overweight Lungs: normal air movement Airway: Mallampati scale class 1 Neurological: alert and oriented Last oral intake: >/= 8 hours ASA classification: II Emergent: no Anesthetic plan: proceed Anesthesia type and monitoring: general LMA and standard monitoring Results Review: All pre-operative results and documents have been reviewed as part of the pre- operative evaluation. HTN, ex smoker, quit 2009, very active w martial arts, no cp or sob. Informed Consent: The patient's anesthetic plan and its attendant risks and benefits were discussed with the patient/family/POA. Questions were solicited and answers provided to the satisfaction of the patient/family/POA.
[2025-01-11] MEDS: ceFAZolin 2 GM/D5W 50 ML 2 GM/50 ML BAG IVPB (09:35)
[2025-01-11] MEDS: BUPivacaine HCL 0.5% 10 ML AMP 5 ML INFILTRATE (09:47)
[2025-01-11] MEDS: LIDOCAINE 1% LOCAL INJ 10 ML VIAL 5 ML INFILTRATE (09:47)
[2025-01-11] MEDS: fentaNYL CITRATE INJ (*CRX) 100 MCG/2 ML VIAL 25 MCG IV PUSH ×4 (10:49→11:10)
[2025-01-11] MEDS: ACETAMINOPHEN 500 MG TABLET 1000 MG PO (11:48)
== END 2025-01-11 12:17 | disposition home or self-care (01) ==
PROVIDERS: PCP Family Medicine; Visit Provider Plastic Surgery
PROC: (CPT 26615; principal; 2025-01-11 09:30)
DX: S62.324A Displaced fracture of shaft of fourth metacarpal bone, right hand, initial encounter for closed fracture (principal); E78.5 Hyperlipidemia, unspecified; I10 Essential (primary) hypertension; J45.909 Unspecified asthma, uncomplicated; L65.9 Nonscarring hair loss, unspecified; R00.1 Bradycardia, unspecified; Z79.82 Long term (current) use of aspirin; Z79.891 Long term (current) use of opiate analgesic; Z98.890 Other specified postprocedural states; Z87.891 Personal history of nicotine dependence; Z82.49 Family history of ischemic heart disease and other diseases of the circulatory system; X50.1XXA Overexertion from prolonged static or awkward postures, initial encounter; Y93.75 Activity, martial arts
CPT/HCPCS: 26615; 99199; A9270; J0690; J1100; J2003; J2250; J2405; J2704; J3010; J7120

== ENCOUNTER 2025-01-23 07:59 | Outpatient (CLI) | payer BC, SELFPAY ==
--- NOTE | ~2025-01-23 | XR_ITS ---
EXAMINATION: XR hand RT min 3V DATE: 01/23/2025 08:14 INDICATION: Displaced fracture of the right fourth metacarpal TECHNIQUE: Posteroanterior, 2 oblique and lateral views of the right hand were obtained. COMPARISON: 01/07/2025 and 01/11/2025 FINDINGS: No significant interval change in one cortical width ulnar/palmar displacement and 2 mm shortening of an oblique diaphyseal fracture of the right fourth metacarpal which is fixed with an axially directe d compression screw. Alignment is otherwise normal. No new fractures identified. 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 IMPRESSION: 1. No significant change in a mildly displaced oblique diaphyseal fracture of the right fourth metaca rpal with screw fixation. Reviewed, dictated and finalized at location A. IMPRESSION: 1. No significant change in a mildly displaced oblique diaphyseal fracture of t he right fourth metacarpal with screw fixation.
--- OUTSIDE RECORDS SUMMARY | 2025-01-23 08:08 | XMS_ITS | Clinical Summary ---
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 [address] PCP - General Family Practice 02/05/21
== END 2025-01-23 08:00 | disposition home or self-care (01) ==
PROVIDERS: PCP Family Medicine; Visit Provider Physician Assistant Surgical
DX: S62.324A Displaced fracture of shaft of fourth metacarpal bone, right hand, initial encounter for closed fracture (principal); X58.XXXA Exposure to other specified factors, initial encounter
CPT/HCPCS: 73130

== ENCOUNTER 2025-02-04 07:05 | Outpatient (CLI) | payer BC, SELFPAY ==
--- OUTSIDE RECORDS SUMMARY | 2025-02-04 07:11 | XMS_ITS | Clinical Summary ---
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 [address] PCP - General Family Practice 02/05/21
--- OUTSIDE RECORDS SUMMARY | 2025-02-04 07:11 | XMS_ITS | Continuity of Care Document ---
Author Organization [facility] Address [address] [place] [address] Phone Care Team Providers Care Nail Making Machine Tender Name Role Phone Quinton PT,MPT,ATC, Johnnie Unavailable [...] Diagnoses Date Provider Providers Copied on Encounter [facility], [address], [place], [place], [id number], [place] tel:[phone] [place] No Information 0 Quinton Betancourt , [place], [place]. Referring Provider: Papi Muñoz, [address] [employer] [facility], [place], [address]. tel:[phone] [place], [place] [address], [place], [place], [id number], [place] tel:[phone] [place] No Information 0-202 0 Alcantara Johnnie. , [place], [place]. Referring Provider: Papi Muñoz, [address] [facility], [place], [address]. tel:[phone] [place], [place] [address] [address], [place], [place], [id number], [place] tel:[phone] [place] No Information 2-202 0 Alcantara Johnnie. , [place], [place]. Referring Provider: Papi Muñoz, [address] [place], [address]. tel:[phone] [place] [address], [place], [place], [id number], [place] tel:[phone] [place] No Information Dec-2 6-201 9 Alcantara Johnnie. , [place], [place]. Referring Provider: Papi Muñoz, [address] [place], [address]. tel:[phone] [place], [place] [address] [address], [place], [place], [id number], [place] tel:[phone] [place] No Information Dec-2 3-201 9 Alcantara Johnnie. , [place], [place]. Referring Provider: Papi Muñoz, [address] [employer] [place], [address]. tel:[phone] [place], [place] [address] [address], [place], [place], [id number], [place] tel:[phone] [place] No Information Dec-2 0-201 9 Alcantara Johnnie. , [place], [place]. Referring Provider: Papi Muñoz, [address] [place], [address]. tel:[phone] [place], [place] [address], [place], [place], [id number], tel:[phone] [place] No Information 9 [place], [place], [place]. Referring Provider: Papi Muñoz, [address] [employer] [facility], [place], [address]. tel:[phone] [employer] [place], [address], [place], [place], [id number], tel:[phone] [place] No Information 9 Quinton [place], [place]. Referring Provider: Papi Muñoz, [address] [employer] [facility], [place], [address]. tel:[phone] Family History Family Member Type Diagnosis Age At Onset No Information Payers Payer name Insurance type Covered alliance party ID Rocio younger(s) [facility] [id number] Social History Type Description Quantity Date Captured [...]
[2025-02-04 07:37] LABS: Cholesterol 218 mg/dL (0-200); Creatine Kinase 102 U/L (55-170); HDL Direct 36 mg/dL; Triglycerides 171 mg/dL (<150)
[2025-02-04 07:49] LABS: LDL Cholesterol Direct 125 mg/dL
== END 2025-02-04 07:06 | disposition home or self-care (01) ==
LOC: ANHLAB 07:09
PROVIDERS: Nurse Practitioner Family; PCP Family Medicine; Visit Provider Physician Assistant Medical
DX: E78.5 Hyperlipidemia, unspecified (principal); R74.8 Abnormal levels of other serum enzymes
CPT/HCPCS: 36415; 80061; 82550

== ENCOUNTER 2025-02-06 07:37 | Outpatient (CLI) | payer BC, SELFPAY ==
--- NOTE | ~2025-02-06 | XR_ITS ---
Right Hand Technique: PA, oblique, and lateral views were obtained. Clinical History: Fourth metacarpal fracture COMPARISON: 01/23/2025 Findings: Status post ORIF of oblique fracture of the fourth metacarpal midshaft. Stable mild displac ement. No callus formation or significant interval healing appreciated. Remaining osseous structures are intact. Soft tissues are unremarkable. Impression: Status post ORIF of fourth metacarpal shaft fracture with stable alignment. No significant callus for mation. No significant interval change. Reviewed, dictated and finalized at location . Impression: Status post ORIF of fourth metacarpal shaft fracture with stable alignment. No significant callus formation. No significant interval change.
--- OUTSIDE RECORDS SUMMARY | 2025-02-06 07:44 | XMS_ITS | Clinical Summary ---
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 [address] PCP - General Family Practice 02/05/21
== END 2025-02-06 07:38 | disposition home or self-care (01) ==
PROVIDERS: PCP Family Medicine; Visit Provider Physician Assistant Surgical
DX: S62.324D Displaced fracture of shaft of fourth metacarpal bone, right hand, subsequent encounter for fracture with routine healing (principal); X58.XXXD Exposure to other specified factors, subsequent encounter
CPT/HCPCS: 73130

== ENCOUNTER 2025-02-20 08:12 | Outpatient (CLI) | payer BC, SELFPAY ==
--- NOTE | ~2025-02-20 | XR_ITS ---
Right Hand Technique: PA, oblique, and lateral views were obtained. Clinical History: Fourth metacarpal fracture COMPARISON: 02/06/2025 Findings: Oblique fracture of the fourth metacarpal shaft is unchanged, status post ORIF. Joint space s are preserved. Soft tissues are unremarkable. Impression: No significant interval change of oblique fourth metacarpal fracture, status post ORIF. Reviewed, dictated and finalized at location . Impression: No significant interval change of oblique fourth metacarpal fracture, status po st ORIF.
--- OUTSIDE RECORDS SUMMARY | 2025-02-20 08:27 | XMS_ITS | Clinical Summary ---
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 [address] PCP - General Family Practice 02/05/21
== END 2025-02-20 08:13 | disposition home or self-care (01) ==
PROVIDERS: PCP Family Medicine; Visit Provider Physician Assistant Surgical
DX: S62.324A Displaced fracture of shaft of fourth metacarpal bone, right hand, initial encounter for closed fracture (principal); X58.XXXA Exposure to other specified factors, initial encounter; Z96.691 Finger-joint replacement of right hand
CPT/HCPCS: 73130

== ENCOUNTER 2025-03-27 11:03 | Outpatient (CLI) | payer BC, SELFPAY ==
--- NOTE | ~2025-03-27 | XR_ITS ---
EXAM: XR hand RT min 3V DATE: 03/27/2025 11:32 HISTORY: S62.324A - Displaced fracture of shaft of fourth metacarp... . COMPARISON: 02/20/2025. FINDINGS: Status post oblique right fourth metacarpal shaft fracture ORIF, in stable position. No aguero rdware fracture or abnormal perihardware lucency. No new fracture. IMPRESSION: Right metacarpal shaft fracture ORIF. No radiographic evidence of hardware related compli cation. Reviewed, dictated and finalized at location K. IMPRESSION: Right metacarpal shaft fracture ORIF. No radiographic evidence of h ardware related complication.
--- OUTSIDE RECORDS SUMMARY | 2025-03-27 11:41 | XMS_ITS | Clinical Summary ---
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 [address] PCP - General Family Practice 02/05/21
== END 2025-03-27 11:04 | disposition home or self-care (01) ==
PROVIDERS: PCP Family Medicine; Visit Provider Physician Assistant Surgical
DX: S62.324A Displaced fracture of shaft of fourth metacarpal bone, right hand, initial encounter for closed fracture (principal); X58.XXXA Exposure to other specified factors, initial encounter; Z96.698 Presence of other orthopedic joint implants
CPT/HCPCS: 73130

== ENCOUNTER 2025-08-12 08:14 | Outpatient (CLI) | payer BC, SELFPAY ==
--- OUTSIDE RECORDS SUMMARY | 2019-12-05 14:00 | XMS_ITS | Continuity of Care Document ---
Author Organization [facility] Address [address] [place] [address] Phone Care Team Providers Care Grocery Clerk Marking Name Role Phone Quinton PT,MPT,ATC, Johnnie Unavailable Unavai lable Procedures Procedure Date Therapeutic Activities Neuromuscular Re-Ed Therapeutic Exercise Therapeutic Activities Neuromuscular Re-Ed Manual Therapy Therapeutic Exercise Therapeutic Activities Neuromuscular Re-Ed Therapeutic Exercise Manual Therapy Therapeutic Activities Neuromuscular Re-Ed Manual Therapy Therapeutic Exercise Therapeutic Activities Neuromuscular Re-Ed Manual Therapy Therapeutic Exercise Therapeutic Activities Neuromuscular Re-Ed Therapeutic Exercise Manual Therapy Therapeutic Activities Neuromuscular Re-Ed Therapeutic Exercise Manual Therapy PT Evaluation Low Complexity Neuromuscular Re-Ed Therapeutic Activities Therapeutic Exercise Advance Directives Directive Yes / No Effective Date File Name No Information Encounters Encounter Description Practice Location Reason(s) For Visit Diagnoses Date Provider Providers Copied on Encounter [facility], [address], [place], [place], [id number], [place] tel:[phone] [place] No Information 0 Quinton Betancourt , [place], [place]. Referring Provider: Papi Muñoz, [address] [facility], [place], [address]. tel:[phone] [place], [place] [address], [place], [place], [id number], [place] tel:[phone] [place] No Information 0-202 0 Alcantara Johnnie. , [place], [place]. Referring Provider: Papi Muñoz, [address] [facility], [place], [address]. tel:[phone] [place], [place] [address], [place], [place], [id number], [place] tel:[phone] [place] No Information 2-202 0 Alcantara Johnnie. , [place], [place]. Referring Provider: Papi Muñoz, [address] [place], [address]. tel:[phone] [place] [address], [place], [place], [id number], [place] tel:[phone] [place] No Information Dec-2 6-201 9 Alcantara Johnnie. , [place], [place]. Referring Provider: Papi Muñoz, [address] [place], [address]. tel:[phone] [place] [address] [address], [place], [place], [id number], [place] tel:[phone] [place] No Information Dec-2 3-201 9 Alcantara Johnnie. , [place], [place]. Referring Provider: Papi Muñoz, [address] [place], [address]. tel:[phone] [place], [place] [address], [place], [place], [id number], [place] tel:[phone] [place] No Information Dec-2 0-201 9 Alcantara Johnnie. , [place], [place]. Referring Provider: Papi Muñoz, [address] [place], [address]. tel:[phone] [place], [place] [address] [address], [place], [place], [id number], tel:[phone] [place] No Information 9 Quinton [place], [place], [place]. Referring Provider: Papi Muñoz, [address] [facility] [facility], [place], [address]. tel:[phone] [facility], [address], [place], [place], [id number], tel:[phone] [place] No Information 9 Quinton [place], [place]. Referring Provider: Papi Muñoz, [address] [employer] [facility], [place], [address]. tel:[phone] Family History Family Member Type Diagnosis Age At Onset No Information Payers Payer name Insurance type Covered libertarian ID Rocio younger(s) [facility] [id number] Social History Type Description Quantity Date Captured Comments Sex Male Smoking Status No Information Chief Complaint And Reason For Visit No Information Reason For Referral Reason For Referral No Information History Of Present Illness Encounter Date Complaint History Of Prese nt Illness No Information Functional Status Date Functional Assessmen t No Information Instructions Date Instruction Additional Infor mation No Information Assessments Type Assessment Date No Information Patient Care Teams Name Effective Dates (start - stop) Status Members No Information
[2025-08-12 09:20] LABS: Hematocrit 40.6 % (42.0-52.0); Hemoglobin 13.2 g/dL (14.0-18.0); Immature Granulocyte Percent A 0.2 % (0-0.5); Lymphocytes Absolute Auto 1.11 K/mm3 (0.9-3.2); Mean Corpuscular HGB Conc 32.5 g/dl (32-36); Mean Corpuscular Hemoglobin 30.1 pg (26-34); Mean Corpuscular Volume 92.7 fl (80-100); Nucleated Red Blood Cells Absolute Auto 0.000 K/mm3 (0.0-0.012); Nucleated Red Blood Cells Perc 0.0 % (0.0-0.2); Platelet Count Result 176 k/mm3 (150-375); Red Blood Count 4.38 M/mm3 (4.6-6.20); White Blood Count 4.0 K/mm3 (4.5-10.0)
[2025-08-12 09:45] LABS: Alanine Aminotransferase 33 U/L (6-50); Albumin Level 4.1 g/dL (3.5-5.1); Alkaline Phosphatase 80 U/L (38-126); Anion Gap 3 mmol/L (4-12); Aspartate Amino Transferase 38 U/L (17-59); Bilirubin,Total 0.4 mg/dL (0.2-1.3); Blood Urea Nitrogen 24 mg/dL (9-20); Calcium 9.3 mg/dL (8.4-10.2); Carbon Dioxide 28 mmol/L (22-30); Chloride 105 mmol/L (98-107); Cholesterol 202 mg/dL (0-200); Estimated Glomerular Filt Rate > 60; Glucose 100 mg/dL (65-110); HDL Direct 39 mg/dL; Potassium 4.3 mmol/L (3.4-5.0); Sodium 136 mmol/L (137-145); Total Protein 7.0 g/dL (6.3-8.2); Triglycerides 74 mg/dL (<150)
[2025-08-12 10:21] LABS: Prostate Specific Antigen 0.5 ng/mL (< OR = 4.0); Thyroid Stimulating Hormone 1.810 uIU/mL (0.465-4.680)
[2025-08-15 23:07] LABS: Free Testosterone (Direct) 10.0 pg/mL (6.8-21.5)
== END 2025-08-12 08:15 | disposition home or self-care (01) ==
LOC: ANHLAB 08:16
PROVIDERS: PCP Family Medicine; Visit Provider Nurse Practitioner Adult Health
DX: Z12.5 Encounter for screening for malignant neoplasm of prostate (principal); L65.9 Nonscarring hair loss, unspecified; R79.89 Other specified abnormal findings of blood chemistry
CPT/HCPCS: 36415; 80053; 80061; 84153; 84402; 84403; 84443; 85025; G0103

== ENCOUNTER 2025-08-26 07:13 | Outpatient (CLI) | payer BC, SELFPAY ==
[2025-08-26 07:45] LABS: Hematocrit 40.7 % (42.0-52.0); Hemoglobin 13.5 g/dL (14.0-18.0); Immature Granulocyte Percent A 0.3 % (0-0.5); Lymphocytes Absolute Auto 1.10 K/mm3 (0.9-3.2); Mean Corpuscular HGB Conc 33.2 g/dl (32-36); Mean Corpuscular Hemoglobin 30.3 pg (26-34); Mean Corpuscular Volume 91.5 fl (80-100); Nucleated Red Blood Cells Absolute Auto 0.000 K/mm3 (0.0-0.012); Nucleated Red Blood Cells Perc 0.0 % (0.0-0.2); Platelet Count Result 186 k/mm3 (150-375); Red Blood Count 4.45 M/mm3 (4.6-6.20); White Blood Count 3.7 K/mm3 (4.5-10.0)
[2025-08-26 08:07] LABS: Anion Gap 7 mmol/L (4-12); Blood Urea Nitrogen 22 mg/dL (9-20); Calcium 9.2 mg/dL (8.4-10.2); Carbon Dioxide 25 mmol/L (22-30); Chloride 106 mmol/L (98-107); Estimated Glomerular Filt Rate > 60; Glucose 99 mg/dL (65-110); Potassium 4.5 mmol/L (3.4-5.0); Sodium 138 mmol/L (137-145)
== END 2025-08-26 07:14 | disposition home or self-care (01) ==
LOC: ANHLAB 07:15
PROVIDERS: PCP Family Medicine; Visit Provider Nurse Practitioner Adult Health
DX: I10 Essential (primary) hypertension (principal); Z13.220 Encounter for screening for lipoid disorders; Z13.6 Encounter for screening for cardiovascular disorders; N28.9 Disorder of kidney and ureter, unspecified
CPT/HCPCS: 36415; 80048; 85025

== ENCOUNTER 2025-10-17 19:30 | Emergency (ER) | payer BC, SELFPAY ==
--- NOTE | ~2025-10-17 | XR_ITS ---
EXAMINATION: Left rib series with PA chest: DATE: 10/17/2025 INDICATION: Left lateral anterior chest wall pain. No mention of trauma. TECHNIQUE: PA chest, 4 views of left ribs were obtained. COMPARISON: None. FINDINGS: Heart size is normal. Lungs are clear on both sides. No acute bony lesions of left-sided ribs. Chest wall shows no acute findings. IMPRESSION: 1. No acute pulmonary findings. 2. No acute abnormalities of left-sided ribs. If symptoms are localized and persistent additional evaluation with CT may be considered. Reviewed, dictated and finalized at location T. MACEUTICAL ENGINEER IMPRESSION: 1. No acute pulmonary findings. 2. No acute abnormalities of left-sided ribs. If symptoms are localized and per sistent additional evaluation with CT may be considered.
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
[2025-10-17 19:39] VITALS: BP 168/93; PULSE 61; RESP 18; TEMP 36.5; O2SAT 100
== END 2025-10-17 20:12 | disposition home or self-care (01) ==
PROVIDERS: Emergency Provider Nurse Practitioner; PCP Family Medicine
DX: R07.89 Other chest pain (principal); R03.0 Elevated blood-pressure reading, without diagnosis of hypertension; E78.5 Hyperlipidemia, unspecified; L65.9 Nonscarring hair loss, unspecified; Z87.891 Personal history of nicotine dependence
CPT/HCPCS: 71101; 99213; G0463